=== PATIENT | female | born 1970 | race Asian ===

== ENCOUNTER 2021-06-03 15:56 | Outpatient (CLI) | payer OTHER | END 2021-06-03 15:57 | disposition home or self-care (01) | LOC: BICRAD 15:56 | PROVIDERS: ATTEND Urology | DX: N20.0 Calculus of kidney (principal) | CPT/HCPCS: 74018 ==

== ENCOUNTER 2021-06-05 08:10 | Outpatient (CLI) | payer SELFPAY ==
[2021-06-05 10:06] LABS: INR-International Normal Ratio 0.9; PTT 27.5 sec (22.0-33.0); Prothrombin Time 10.3 sec (9.5-12.1)
[2021-06-05 10:09] LABS: Anion Gap 14 mmol/L (10-20); BUN (Urea Nitrogen) 12 mg/dL (7.0-18.7); Calc. Creatinine Clearance 0 mL/min (70-130); Calcium 9.2 mg/dL (7.8-10.44); Carbon Dioxide 28 mmol/L (22-29); Chloride 98 mmol/L (98-107); Glucose 86 mg/dL (70-105); Potassium 3.6 mmol/L (3.5-5.1); Sodium 136 mmol/L (136-145)
[2021-06-05 10:10] LABS: Hemoglobin 12.6 g/dL (12.0-15.5); Mean Corpuscular HGB CONC 32.8 g/dL (32.0-36.0); Mean Corpuscular Hemoglobin 30.4 pg (27.0-33.0); Mean Corpuscular Volume 92.8 fl (81.6-98.3); Mean Platelet Volume 10.5 fl (7.4-10.4); Platelet Count 362 10x3/uL (150-450); RBC Distribution Width 12.7 % (11.5-14.5); Red Blood Cell (RBC) Count 4.14 10x6/uL (3.90-5.03); White Blood Cell (WBC) Count 7.8 10x3/uL (3.5-10.5)
[2021-06-05 21:50] LABS: SARS-CoV-2 PCR by NAA Not Detected (NotDetected)
== END 2021-06-05 08:11 | disposition home or self-care (01) ==
LOC: LABBT 08:10
PROVIDERS: ATTEND Urology
DX: Z01.818 Encounter for other preprocedural examination (principal); N20.0 Calculus of kidney; E11.9 Type 2 diabetes mellitus without complications; Z20.822 Contact with and (suspected) exposure to COVID-19
CPT/HCPCS: 80048; 85027; 85610; 85730; U0003; U0005

== ENCOUNTER 2021-06-17 08:27 | Outpatient (CLI) | payer OTHER | END 2021-06-17 08:28 | disposition home or self-care (01) | LOC: BICRAD 08:27 | PROVIDERS: ATTEND Urology | DX: N20.0 Calculus of kidney (principal) | CPT/HCPCS: 74018 ==

== ENCOUNTER 2023-11-30 13:38 | Outpatient (CLI) | payer BC ==
[2023-11-30 14:41] LABS: #Basophils 0.03 10x3/uL (0.0-0.2); %Basophils 0.3 % (0.0-1.0); %Eosinophils 1.5 % (0.0-10.0); %Lymphocytes 33.4 % (21.0-51.0); %Monocytes 7.2 % (0.0-10.0); Hemoglobin 13.6 g/dL (12.0-16.0); Mean Corpuscular HGB CONC 32.4 g/dL (32.0-36.0); Mean Corpuscular Hemoglobin 31.3 pg (27.0-31.0); Mean Corpuscular Volume 96.8 fL (78.0-98.0); Mean Platelet Volume 10.6 fL (7.4-10.4); Platelet Count 291 10x3/uL (130-400); RBC Distribution Width 12.3 % (11.5-14.5); Red Blood Cell (RBC) Count 4.34 mill/uL (4.20-5.40)
[2023-11-30 14:45] LABS: Bacteria/HPF None Seen HPF (None Seen); Bilirubin Negative (Negative); Blood, Urine Trace (Negative); Clarity Clear (Clear); Glucose, Urine (Dipstick) Normal (Negative); Ketone, Urine Negative (Negative); Leukocyte Negative Leu/uL (Negative); Nitrite Negative (Negative); Protein, Urine (Dipstick) Negative (Neg-Trace); RBC/HPF 0-3 HPF (0-3); Specific Gravity, Urine 1.007 (1.002-1.036); Squamous Epithelial 0-3 HPF (0-3); Urobilinogen Normal mg/dL (Less than 2); WBC/HPF None Seen HPF (0-3)
[2023-11-30 14:54] LABS: PTT 29.9 sec (22.9-36.1); Prothrombin Time 13.1 sec (12.0-14.7)
[2023-11-30 15:04] LABS: Anion Gap 13 mmol/L (10-20); BUN (Urea Nitrogen) 11 mg/dL (9.8-20.1); Calc. Creatinine Clearance 0 mL/min (70-130); Calcium 9.7 mg/dL (7.8-10.44); Carbon Dioxide 27 mmol/L (22-29); Chloride 102 mmol/L (98-107); Estimated GFR 107; Glucose 119 mg/dL (70-105); Potassium 3.3 mmol/L (3.5-5.1); Sodium 139 mmol/L (136-145)
== END 2023-11-30 13:39 | disposition home or self-care (01) ==
LOC: LABBT 13:38
PROVIDERS: ATTEND Urology
DX: Z01.818 Encounter for other preprocedural examination (principal); N20.0 Calculus of kidney; E11.9 Type 2 diabetes mellitus without complications; R35.0 Frequency of micturition
CPT/HCPCS: 80048; 81001; 85025; 85610; 85730; 87086; 93005; 93010

== ENCOUNTER 2023-12-16 11:06 | Day surgery (SDC) | payer BC ==
[2023-11-30 13:52] VITALS: BMI 42.0
[2023-12-16] MEDS ORDERED: LevoFLOXacin D5W 500 mg (100 mL) BAG ONE (11:46)
[2023-12-16] MEDS ORDERED: Midazolam HCl 2 mg/2 ml Vial ONE (11:52)
[2023-12-16] MEDS ORDERED: fentaNYL PF 100 MCG/2 ML SYRINGE ONE (11:52)
[2023-12-16] MEDS ORDERED: PROPOFOL 20 ML ONE (11:52)
[2023-12-16] MEDS ORDERED: Ondansetron PF 4 MG/2 ML Vial ONE (12:37)
[2023-12-16] MEDS ORDERED: Dexamethasone 20 MG/5 ML VIAL ONE (12:37)
[2023-12-16] MEDS ORDERED: Iopamidol 30 ML ONE (13:12)
[2023-12-16] MEDS ORDERED: Lidocaine 1% PF 5 ML VIAL ONE (13:42)
[2023-12-16] MEDS ORDERED: PHENYLEPHRINE-NS 100 MCG/ML 10 ML SYRINGE ONE (13:45)
[2023-12-16] MEDS ORDERED: Ketorolac Tromethamine 30 MG (1 mL) VIAL ONE (14:27)
[2023-12-16] MEDS ORDERED: Oxybutynin 5 MG TAB ONE (14:49)
[2023-12-16] MEDS ORDERED: Phenazopyridine HCl 100 MG TAB ONE (14:49)
== END 2023-12-16 16:34 | disposition home or self-care (01) ==
LOC: SDC 11:06
PROVIDERS: ATTEND Urology
PROC: 0T768DZ Dilation of Right Ureter with Intraluminal Device, Via Natural or Artificial Opening Endoscopic (ICD-10-PCS; principal; 2023-12-16)
PROC: 0TC68ZZ Extirpation of Matter from Right Ureter, Via Natural or Artificial Opening Endoscopic (ICD-10-PCS; principal; 2023-12-16)
DX: N20.0 Calculus of kidney (principal); I10 Essential (primary) hypertension; E11.9 Type 2 diabetes mellitus without complications; R35.0 Frequency of micturition; Z79.84 Long term (current) use of oral hypoglycemic drugs; Z90.49 Acquired absence of other specified parts of digestive tract; Z79.899 Other long term (current) drug therapy
CPT/HCPCS: 74018; 74420; 82365; 88300; C1747; C1769; C2617; J1100; J1885; J1956; J2250; J2405; J2704; Q9967